=== PATIENT | male | born 1960 | race American Indian/Alaskan Native ===

== ENCOUNTER 2023-06-13 02:27 | Inpatient (IN) | payer MEDICAID, OTHER ==
[~2023-06-13] VITALS: Ht 167.6 cm; Wt 113.6 kg
[2023-06-13 03:22] LABS: ALBUMIN 3.3 G/DL (3.4-5.0); ANION GAP 11 (8-16); BLOOD UREA NITROGEN 14 MG/DL (7-18); BUN/CREATININE RATIO 11.9 (10.0-20.0); CALCIUM 8.6 MG/DL (8.5-10.1); CHLORIDE 102 MMOL/L (99-107); CREATININE 1.18 MG/DL (0.60-1.10); GLUCOSE 293 MG/DL (70-104); POTASSIUM 3.6 MMOL/L (3.5-5.1); SODIUM 136 MMOL/L (135-145); TOTAL CARBON DIOXIDE 23.2 MMOL/L (24-32); eCRCL 59 ML/MIN; eGFR 63 ML/MIN
[2023-06-13 03:27] LABS: BASOPHILS # (AUTO) 0.1 X10'3 (0-0.2); BASOPHILS % (AUTO) 0.9 % (0-1); EOSINOPHILS # (AUTO) 0.5 X10'3 (0-0.9); EOSINOPHILS % (AUTO) 6.3 % (0-6); HEMOGLOBIN 15.7 g/dl (14.0-17.9); LYMPHOCYTES # (AUTO) 2.5 X10'3 (1.1-4.8); LYMPHOCYTES % (AUTO) 34.1 % (21-51); MEAN CORPUSCULAR HEMOGLOBIN 28.4 PG (27.0-31.0); MEAN CORPUSCULAR HGB CONC 34.9 g/dL (33.0-36.5); MEAN CORPUSCULAR VOLUME 81.2 FL (78-98); MEAN PLATELET VOLUME 8.1 FL (7.4-10.4); MONOCYTES # (AUTO) 0.5 X10'3 (0-0.9); MONOCYTES % (AUTO) 6.4 % (2-12); NEUTROPHILS # (AUTO) 3.8 X10'3 (1.8-7.7); NEUTROPHILS % (AUTO) 52.3 % (42-75); PLATELET COUNT 224 X10'3 (140-440); RED BLOOD COUNT 5.54 X10'6 (4.70-6.10); RED CELL DISTRIBUTION WIDTH 13.8 % (11.5-14.5); WHITE BLOOD COUNT 7.3 X10'3 (4.5-11.0)
[2023-06-13] MEDS ORDERED: magnesium Cl slow-release 64mg tablet PO PRN (03:45)
[2023-06-13] MEDS ORDERED: magnesium 2GM in 50ml NS 50 ML IV PRN (03:45)
[2023-06-13] MEDS ORDERED: potassium Cl 20 mEq SR tablet PO PRN ×2 (03:45)
[2023-06-13] MEDS ORDERED: mag hydrox/Alum hydrox/simeth 30ml oral suspension PO PRN (03:45)
[2023-06-13] MEDS ORDERED: magnesium hydroxide 30ml (MOM) UD suspension PO PRN (03:45)
[2023-06-13] MEDS ORDERED: acetaminophen 325mg tablet PO PRN ×2 (03:45)
[2023-06-13] MEDS ORDERED: magnesium 4gm in 100ml NS 100 ML IV PRN (03:45)
[2023-06-13] MEDS ORDERED: ondansetron/PF 4mg/2ml inj IV PRN (03:45)
[2023-06-13] MEDS ORDERED: potassium Cl 40MEQ/1/2NS 520ml 520 ML IV PRN (03:45)
[2023-06-13] MEDS ORDERED: DEXTROSE 15 GM of carb/4 tabs (each vial/BOTTLE has 4 tablets) PO PRN ×2 (04:05)
[2023-06-13] MEDS ORDERED: glucagon, human recombinant 1mg kit SUBCUT PRN (04:05)
[2023-06-13] MEDS ORDERED: dextrose 50%-water 50ml dispensing syringe IV PRN ×2 (04:05)
[2023-06-13] MEDS: MESSAGE TO PHARMACY PO ONE (04:36)
[2023-06-13 06:40] LABS: THYROID STIMULATING HORMONE 3.33 ulU/ml (0.34-4.50)
[2023-06-13 07:03] VITALS: BP 154/91; PULSE 79; RESP 16; TEMP 97.8; O2SAT 96
[2023-06-13 07:23] LABS: HEMOGLOBIN A1C > 12.0 % (4.5-6.2)
[2023-06-13] MEDS: K and/or MAG REPLACEMENT MC SCH (08:00)
[2023-06-13] MEDS: aspirin 81mg, enteric-coated 1 TAB TABLET.DR PO SCH (08:38)
[2023-06-13] MEDS: atorvastatin 20mg tablet PO SCH (08:38)
[2023-06-13] MEDS: clopidogrel 75mg tablet PO SCH (08:38)
[2023-06-13] MEDS: insulin Lispro (HumaLOG) vial - multi-dose SQ SCH (10:14)
[2023-06-13 10:30] VITALS: BP 153/89; PULSE 88; RESP 16; TEMP 98.8; O2SAT 96
[2023-06-13] MEDS: lisinopril 10 MG tablet PO SCH (12:18)
[2023-06-13] MEDS ORDERED: simvastatin (12:57)
[2023-06-13] MEDS ORDERED: vitamin d (12:57)
[2023-06-13] MEDS ORDERED: PIOG15TA8 PO (12:57)
[2023-06-13] MEDS ORDERED: METF-438 PO (12:57)
[2023-06-13] MEDS ORDERED: LISI40TA13 PO (12:57)
[2023-06-13] MEDS ORDERED: SIMV10TA98 PO (16:17)
[2023-06-13 18:00] VITALS: BP 108/77; PULSE 80; RESP 15; TEMP 98.3; O2SAT 96
[2023-06-13 20:00] VITALS: RESP 18; O2SAT 96
[2023-06-13] MEDS: insulin glargine (Lantus) pen - multi-dose SQ SCH (21:33)
[2023-06-13 22:00] VITALS: BP 136/81; PULSE 81; RESP 18; TEMP 97.9; O2SAT 96
[2023-06-14 06:40] LABS: BASOPHILS # (AUTO) 0.1 X10'3 (0-0.2); BASOPHILS % (AUTO) 1.1 % (0-1); EOSINOPHILS # (AUTO) 0.5 X10'3 (0-0.9); EOSINOPHILS % (AUTO) 6.6 % (0-6); HEMATOCRIT 45.1 % (42.0-52.0); HEMOGLOBIN 15.8 g/dl (14.0-17.9); LYMPHOCYTES # (AUTO) 2.4 X10'3 (1.1-4.8); LYMPHOCYTES % (AUTO) 34.1 % (21-51); MEAN CORPUSCULAR HEMOGLOBIN 28.4 PG (27.0-31.0); MEAN CORPUSCULAR VOLUME 81.2 FL (78-98); MEAN PLATELET VOLUME 8.2 FL (7.4-10.4); MONOCYTES # (AUTO) 0.4 X10'3 (0-0.9); MONOCYTES % (AUTO) 5.8 % (2-12); NEUTROPHILS # (AUTO) 3.7 X10'3 (1.8-7.7); NEUTROPHILS % (AUTO) 52.4 % (42-75); PLATELET COUNT 204 X10'3 (140-440); RED BLOOD COUNT 5.55 X10'6 (4.70-6.10); RED CELL DISTRIBUTION WIDTH 13.8 % (11.5-14.5); WHITE BLOOD COUNT 7.1 X10'3 (4.5-11.0)
[2023-06-14 06:58] VITALS: BP 128/85; PULSE 72; RESP 18; TEMP 97.5; O2SAT 99
[2023-06-14 07:02] LABS: ANION GAP 11 (8-16); BLOOD UREA NITROGEN 22 MG/DL (7-18); BUN/CREATININE RATIO 18.5 (10.0-20.0); CALCIUM 8.6 MG/DL (8.5-10.1); CHLORIDE 104 MMOL/L (99-107); CHOL/HDL RATIO 6.8 (0.00-4.99); CHOLESTEROL 217 MG/DL (0-200); CREATININE 1.19 MG/DL (0.60-1.10); GLUCOSE 250 MG/DL (70-104); HDL CHOLESTEROL 32 MG/DL (35-60); LDL CHOLESTEROL 135 MG/DL (50-100); MAGNESIUM 1.8 MG/DL (1.5-2.4); PHOSPHORUS 4.5 MG/DL (2.3-4.5); POTASSIUM 3.6 MMOL/L (3.5-5.1); SODIUM 140 MMOL/L (135-145); TOTAL CARBON DIOXIDE 25.1 MMOL/L (24-32); TRIGLYCERIDES 377 MG/DL (20-135); eCRCL 59 ML/MIN; eGFR 62 ML/MIN
[2023-06-14] MEDS ORDERED: atorvastatin 20mg tablet PO SCH (08:00)
[2023-06-14] MEDS ORDERED: clopidogrel 75mg tablet PO SCH (08:00)
[2023-06-14] MEDS ORDERED: aspirin 81mg, enteric-coated 1 TAB TABLET.DR PO SCH (08:00)
[2023-06-14] MEDS: lisinopril 20mg tablet PO SCH (09:05)
[2023-06-14] MEDS ORDERED: CLOP75TA34 PO (09:28)
[2023-06-14] MEDS ORDERED: ATOR20TA66 PO (09:28)
[2023-06-14] MEDS ORDERED: LISI20TA28 PO (09:28)
[2023-06-14] MEDS ORDERED: ASPI-1071 PO (09:28)
[2023-06-14 10:44] VITALS: RESP 16; O2SAT 98
[2023-06-14 10:49] VITALS: BP 142/81; PULSE 81; RESP 16; TEMP 98.7; O2SAT 94
== END 2023-06-14 11:10 | disposition home or self-care (01) | DRG 45 ==
LOC: ER 02:27 → ED HOLD 03:54 → ORTHO 4S 07:00
PROVIDERS: ADMIT Internal Medicine; ATTEND Internal Medicine
DX: I63.89 Other cerebral infarction (principal); I67.1 Cerebral aneurysm, nonruptured; E11.9 Type 2 diabetes mellitus without complications; E78.00 Pure hypercholesterolemia, unspecified; I10 Essential (primary) hypertension; E66.01 Morbid (severe) obesity due to excess calories; Z68.41 Body mass index [BMI] 40.0-44.9, adult
CPT/HCPCS: 36415; 70551; 80048; 80061; 82948; 83036; 83735; 84100; 84443; 85025; 87081; 93306; 97161; 97530; 99291; G0378

== ENCOUNTER 2024-03-03 15:56 | Outpatient (CLI) | payer MEDICAID, OTHER ==
[~2024-03-03 15:56] MED LIST: ASPI-1071 PO; ATOR20TA66 PO; CLOP75TA34 PO; LISI20TA28 PO; METF-438 PO; PIOG15TA8 PO; iohexol 350MG/ML 100ml bottle IV ONE
[2024-03-03] MEDS ORDERED: iohexol 350MG/ML 100ml bottle IV ONE (16:23)
== END 2024-03-03 23:59 | disposition home or self-care (01) ==
LOC: RAD 15:56
PROVIDERS: ATTEND Nurse Practitioner
DX: I67.1 Cerebral aneurysm, nonruptured (principal); I65.23 Occlusion and stenosis of bilateral carotid arteries; Z95.828 Presence of other vascular implants and grafts
CPT/HCPCS: 70496; Q9967